=== PATIENT | male | born 1985 | race Two or more races ===

== ENCOUNTER → 2019-04-18 | Outpatient (CLI) | payer OTHER | END | disposition home or self-care (01) | LOC: RAD 08:53 | DX: M54.89 Other dorsalgia (principal) ==

== ENCOUNTER 2019-12-12 13:08 | Outpatient (CLI) | payer OTHER | END 2019-12-12 13:31 | disposition home or self-care (01) | LOC: RAD 13:08 | DX: M25.511 Pain in right shoulder (principal) ==